=== PATIENT | female | born 1995 | race Caucasian/White ===

== ENCOUNTER 2021-04-05 02:00 | Emergency (ER) | payer OTHER, SELFPAY ==
[2021-04-05 02:10] VITALS: BP 137/85; PULSE 64; RESP 16; TEMP 36.7; O2SAT 100; BMI 44.4
[2021-04-05] MEDS: clindamycin 150 mg Capsule 300 MG PO (02:21)
--- NOTE | 2021-04-05 02:21 | W.ED.DENTAL ---
HPI - Dental/Oral General: Chief complaint: Dental/Oral Stated complaint: Tooth Ache Time Seen by Provider: 04/05/21 02:03 History of Present Illness: HPI Narrative: Dental pain x1 day MD Complaint: tooth pain Teeth map: 1. 2. Onset (ago): day(s) Duration: constant Severity: mild Severity scale (1-10): 2 Relieving factors: nothing Associated symptoms: Denies fever(s) Review of Systems Const: Denies: fever(s), chills or body aches Eyes: Denies: change in vision or blurry vision ENMT: Reports: dental pain; Denies: throat pain or nasal congestion Card: Denies: chest pain or dyspnea on exertion Resp: Denies: dyspnea, productive cough or non-productive cough GI: Denies: abdominal pain, nausea or vomiting Musc: Denies: extremity pain Skin/Breast: Denies: rash Neuro: Denies: headache(s) Psych: Denies: anxiety or depression Jose R/Lymph: Denies: easy bruising [facility] ED Female Reproductive History: Date of last menstrual period: 03/13/21 Physical Exam Const: COMMON NORMALS: no acute distress HENMT: FACE & SINUS: normal facial exam TEETH & GINGIVA: Yes caries TEETH & GINGIVA IMAGES: 1. Caries 2. Caries Psych: COMMON NORMALS: mental status grossly normal Course Vital Signs: Vital signs: Vital Signs Temperature 98.1 F 04/05/21 02:10 Pulse Rate 64 04/05/21 02:10 Respiratory Rate 16 04/05/21 02:10 Blood Pressure 137/85 04/05/21 02:10 Pulse Oximetry 100 04/05/21 02:10 Discharge Plan Discharge Patient Disposition: Home Clinical Impression: Toothache, Dental caries Condition: Stable Prescriptions: New clindamycin HCl 300 mg capsule 300 mg PO Q8H 7 Days Qty: 21 RF: 0 tramadol 50 mg tablet 50 mg PO TID PRN (Reason: pain) Qty: 7 RF: 0 Discharge Orders: Discharge ED (Routine); Ordered 04/05/21 Ordered By: Fareed Daily Discharge Diet: Usual diet Discharge Activity: Resume usual activity Patient Instructions: Dental Caries (ED), Opioid Safety Activity Restrictions/Additional Instructions: Follow-up with medical provider as directed. Take medications as prescribed. Return to the ER or your medical provider if condition worsens. Please read and understand discharge instructions. If any questions ask please. Call dentist on Wednesday and schedule appointment to get evaluated Coding Level of Care Code ED Senior Quality Methods Specialist for Chetna Zamorano
[2021-04-05] MEDS: TRAMadol 50 mg Tablet PO (02:22)
== END 2021-04-05 02:39 | disposition home or self-care (01) ==
PROVIDERS: Emergency Provider Nurse Practitioner Family
DX: K02.9 Dental caries, unspecified (principal)
CPT/HCPCS: 99283